=== PATIENT | male | born 1985 | race Caucasian/White ===

== ENCOUNTER 2023-02-06 09:00 | Outpatient (RCR) | payer OTHER, SELFPAY ==
--- NOTE | 2022-11-20 15:16 | HP.PTEVAL ---
Patient's Visit Information ALISE CACERES is a 37 year old M referred to Physical Therapy by SABRINA HERNANDEZ with a diagnosis of s/p craniotomy. Date of Evaluation: 11/20/22 Physical Therapist: Yi Damian DPT - Visit Plan Frequency: 2-3x /Week Duration: 4 Weeks Plan: Focus on LE and core strength/stabilization, proprioception and endurance building after fall from roof and craniotomy with plate placement 10/12/22 - Subjective Fell from a roof Oct 10 (37-42 feet high)- landed on [employer]- took him to [facility] in [place] was there 6 days-ER sutures behind the ear- scans and had a collapsed lung, 3 broken ribs, skull fx and occipital fx on the left- brain bleed but not active. Oct 12 the did a craniotomy and put a plate in- the eye fracture did not need surgery- ribs healed on his own. Went home Oct 16- and he has been home since then-no therapy at home. 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 Currently he has some rib pain-he is trying to do more so they are a little tender- sporadic head pain more in the incision area more at night when he has been moving all day. He is using his spirometer and has no SOB. He reports no AMBROSIO. Balance is a lot better than it was at first- he still has issues here and there- runs into shukla and doorframes but continues to get better- its 80-85% better. Left side trauma but does catch his right foot sometimes when walking. He has the shower chair back to 60-70% back to bathing indep. Hand eye coordination- messy eater but that is getting better- handwriting is getting better- texting is getting better. Speech is also getting better. They did not send him for SP/OT. No falls. He feels that he is 50% back to normal by pt and 70% by caregiver. Things he wants to get better: balance and being able to do his ADL's. PMHx: none Meds: Tylenol PRN- Goal: back to work and ride motorcycle - Objective Posture: fair throughout- can correct with verbal cues but slumps with time in sitting. Gait: no deviation noted. Balance: see balance assessments below. HR/TR: able. SLS: 15 sec bilaterally eyes open stable surface. Stairs: asc/desc 8 recip with 1 HR. ROM: WFL in all planes. Strength: Core: fair minus, Hip: 4+/5, Knee: 5/5, Ankle: 5/5 - Balance/Special Test Scores Functional Gait Assessment Score: 26 % Disability: 13.3400 CATSIB Score (Max score 120 seconds): 110 Lower Extremity Functional Score: 42 - Goals Goal 1:: Patient will be I with HEP and progression Goal Time Frame: 4-6 Weeks Goal 2:: Patient will maintain proper posture t/o to demo increased core s/s Goal Time Frame: 4-6 Weeks Goal 3:: Patient will report no balance issues for 1 week Goal Time Frame: 4-6 Weeks Goal 4:: Patient will report 80% improvement - Rehabilitation Potential Physical Therapy Diagnosis: Patient presents with hypomobility- he has decreased core strength/stabilization, proprioception and muscular endurance s/p fall off roof with craniotomy leading to abnormal ability to perform ADL's Rehabilitation Potential: Good - Anticipated Interventions Patient/Client Instruction: Educate patient on: Benefits of Fitness Program Therapeutic Exercise to Include: Strength training, Endurance training, Balance training, Coordination, Agility training, Body mechanics, Postural training, Flexibilty training, Gait and locomotor training, Neuromotor development, Dynamic Lumbar Stabilization, Scapular Strength/Stabilization For the Purpose of:: To improve muscle performance and motor function Thank you for the opportunity to evaluate your patient. For Medicare and Medicare HMO plans, please review the plan of care and approve it. It will need to be FAXED BACK to us at [phone] for Medicare purposes. For Medicare only, by signing this I certify the plan of care. Please let me know if there are questions or concerns regarding this plan of care. Physician Signature: Date:
--- NOTE | 2022-12-20 10:21 | HP.PTREVAL ---
SABRINA HERNANDEZ, It has been my pleasure to treat ALISE CACERES over the last 13 visits for s/p craniotomy. Please see the progress note below for an update on the physical therapy plan of care! Subjective: Patient reports that he goes back to the MD on December 30- they plan to call today about a new C9. Patient reports that his ribs periodically are sore depending on movement. He feels that he is getting better- he still has issues with balance. When he fatigues he gets more off balance. He is moving more at home. Objective/Function: Posture: fair throughout. Gait: no deviation noted. Balance: see balance assessments below. HR/TR: able. SLS: 30 sec bilaterally eyes open stable surface. Stairs: asc/desc 8 recip with 1 HR. ROM: WFL in all planes. Strength: Core: fair minus, Hip: 5/5, Knee: 5/5, Ankle: 5/5 Plan Plan: 12/20/22: Fully I with strength- focus on high level balance and balance machine. Focus on LE and core strength/stabilization, proprioception and endurance building after fall from roof and craniotomy with plate placement 10/12/22 (fall on 10/10). Balance/Gait/Functional tests - Balance/Special Test Scores Functional Gait Assessment Score: 26 % Disability: 13.3400 CATSIB Score (Max score 120 seconds): 120 Lower Extremity Functional Score: 65 Tug Test: <10 sec.=free mobile Goals Goal 1:: Patient will be I with HEP and progression Goal Time Frame: 4-6 Weeks Goal Progress: Progressing Goal 2:: Patient will maintain proper posture t/o to demo increased core s/s Goal Time Frame: 4-6 Weeks Goal Progress: Progressing Goal 3:: Patient will report no balance issues for 1 week Goal Time Frame: 4-6 Weeks Goal Progress: Progressing Goal 4:: Patient will report 80% improvement Goal Progress: Goal Met Anticipated Interventions Patient/Client Instruction: Educate patient on: Benefits of Fitness Program Therapeutic Exercise to Include: Strength training, Endurance training, Balance training, Coordination, Agility training, Body mechanics, Postural training, Flexibilty training, Gait and locomotor training, Neuromotor development, Dynamic Lumbar Stabilization, Scapular Strength/Stabilization For the Purpose of:: To improve muscle performance and motor function Please do not hesitate to contact me at [phone] by phone or if you have questions or concerns regarding this new plan of care! Sincerely, ALLI GarzaT
--- NOTE | 2023-02-06 09:57 | HP.PTDCSUM ---
It has been my pleasure to treat ALISE CACERES referred by SABRINA HERNANDEZ, with the diagnosis of s/p craniotomy for a total of 21 visit(s). Discharge Date: Please see the following information for a summary of their discharge status. Subjective: Patient reports that he feels like he is doing extremely well. 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 He has been back for about 4 weeks- going really well- he is having no issues. He started jogging on the TM about a month ago and he felt really unstable after so he stopped so he is just walking on the TM. He has done an ellip and does not have an issues with it. Went back to neuro last month and he released him to PCP with progression or return to work. No pain. No dizziness, LOB or any other issues. L rib Pain Intensity (Out of 10): 0 % Improvement: 85 Objective/Function: Posture: good throughout. Gait: no deviation noted. Balance: patient able to perform high level balance exercises with weights on unstable surfaces without loss of balance or dizziness HR/TR: able. SLS on uneven surface while performing high level activities without loss of balance bilateral Stairs: asc/desc 8 recip with no HR ROM: WFL in all planes. Strength: Core: fair minus, Hip: 5/5, Knee: 5/5, Ankle: 5/5 Goal 1:: Patient will be I with HEP and progression Goal Progress: Goal Met Goal 2:: Patient will maintain proper posture t/o to demo increased core s/s Goal Progress: Goal Met Goal 3:: Patient will report no balance issues for 1 week Goal Progress: Goal Met Goal 4:: Patient will report 80% improvement Goal Progress: Goal Met Plan: 02/06/23: Discharge- continue with gym program- encouraged to call if questions- educated on modifications as needed. 12/20/22: Fully I with strength- focus on high level balance and balance machine. Focus on LE and core strength/stabilization, proprioception and endurance building after fall from roof and craniotomy with plate placement 10/12/22 (fall on 10/10). If there are questions or concerns regarding this patient's physical therapy, please feel free to call me at [phone]. Thank you for the referral of this patient. Sincerely, Yi Damian, DPT Balance/Gait/Functional tests - Balance/Special Test Scores Functional Gait Assessment Score: 26 % Disability: 13.3400 CATSIB Score (Max score 120 seconds): 120 Lower Extremity Functional Score: 75 Tug Test: <10 sec.=free mobile
== END 2023-02-06 15:05 | disposition home or self-care (01) ==
LOC: PT 09:00
DX: S02.91XA Unspecified fracture of skull, initial encounter for closed fracture (principal)
CPT/HCPCS: 97110; 97112; 97162; 97164